=== PATIENT | female | born 1995 | race Caucasian/White ===

== ENCOUNTER 2016-07-15 11:23 | Inpatient (IN) | payer BC, MEDICAID ==
[~2016-07-15] VITALS: Ht 154.9 cm; Wt 92.3 kg
[~2016-07-15 11:23] MED LIST: MIDRIN PO; NO HOME MEDICATIONS; REGLAN 5MG T5 MG/TAB PO; birth control
[2016-08-08] VITALS (9 sets, daily range): BP systolic 135–167; BP diastolic 82–106; PULSE 100–130; TEMP 98–98.4
[2016-08-08 20:04] LABS: BASO % 0.2 % (0.0-2.0); EOS # 0.2 (0.0-0.7); EOS % 1.2 % (0-4.0); GRAN # 10.5 (1.4-6.5); GRAN % 77.1 % (42.2-75.2); HEMATOCRIT 30.4 % (37.0-47.0); HEMOGLOBIN 9.6 g/dl (12.5-16.0); LYMPH # 1.7 (1.2-3.4); LYMPH % 12.5 % (20.0-51.0); MEAN CELL VOLUME 76 fl (80.0-100.0); MEAN CORPUSCULAR HEMOGLOBIN 24 pg (27.0-31.0); MEAN CORPUSCULAR HGB CONC 32 g/dl (33.0-37.0); MEAN PLATELET VOLUME 12.4 fl (7.4-10.4); MONO % 7.5 % (1.7-9.3); PLATELET COUNT 222 K/mm3 (130-400); RED BLOOD COUNT 3.98 M/mm3 (4.10-5.30); REDCELL DISTRIBUTION WIDTH-CV 16.1 % (11.5-14.5); WHITE BLOOD COUNT 13.7 K/mm3 (4.8-10.8)
[2016-08-08 21:21] LABS: PH 7 (5-8); SQUAMOUS EPITHELIAL 0-2 /hpf; URINE APPEARANCE Clear; URINE BACTERIA None Seen /hpf; URINE BILIRUBIN Negative (NEGATIVE); URINE BLOOD Negative (NEGATIVE); URINE COLOR Yellow; URINE GLUCOSE Negative (NEGATIVE); URINE KETONE Negative (NEGATIVE); URINE RBC 0-2 /hpf; URINE UROBILINOGEN Negative (NEGATIVE); URINE WBC 0-2 /hpf
[2016-08-08 21:38] LABS: ADJUSTED CALCIUM 9.3 mg/dL (8.4-10.2); ALBUMIN 3.4 gm/dL (3.5-5.0); BILIRUBIN,TOTAL 0.5 mg/dL (0.0-1.0); CALCIUM 8.8 mg/dL (8.4-10.2); CREATININE, serum 0.66 mg/dL (0.52-1.25); POTASSIUM 3.5 mmol/L (3.4-5.0); TOTAL PROTEIN 6.2 gm/dL (6.4-8.2)
[2016-08-08] MEDS ORDERED: IRON325 MG PO (21:42)
[2016-08-09] VITALS (79 sets, daily range): BP systolic 103–159; BP diastolic 58–98; PULSE 90–115; TEMP 97.9–98.4
[2016-08-10] VITALS (50 sets, daily range): BP systolic 115–161; BP diastolic 19–100; PULSE 81–974; TEMP 98.1–99.8
[2016-08-10 11:01] LABS: MEAN CELL VOLUME 76 fl (80.0-100.0); MEAN CORPUSCULAR HGB CONC 33 g/dl (33.0-37.0); MEAN PLATELET VOLUME 12.7 fl (7.4-10.4); PLATELET COUNT 234 K/mm3 (130-400)
[2016-08-10 11:05] LABS: ADD PATHOLOGY DIFF REVIEW NO; HEMATOCRIT 26.7 % (37.0-47.0); HEMOGLOBIN 8.7 g/dl (12.5-16.0); MEAN CORPUSCULAR HEMOGLOBIN 25 pg (27.0-31.0); WHITE BLOOD COUNT 32.7 K/mm3 (4.8-10.8)
[2016-08-10 13:19] LABS: BAND 28 % (0-10); NEUTROPHILS 70 % (42.0-75.2); PLATELET ESTIMATE NORMAL (NORMAL); TOTAL CELLS COUNTED 100
[2016-08-11 00:15] VITALS: BP 131/89; PULSE 107; TEMP 97.8
[2016-08-11 04:45] VITALS: BP 112/72; PULSE 99; TEMP 97.7
[2016-08-11 07:00] VITALS: BP 129/77; PULSE 100; TEMP 98.3
[2016-08-11 08:14] LABS: BASO % 0.2 % (0.0-2.0); EOS # 0.2 (0.0-0.7); GRAN # 15.4 (1.4-6.5); GRAN % 82.4 % (42.2-75.2); LYMPH # 1.7 (1.2-3.4); MEAN CELL VOLUME 79 fl (80.0-100.0); MEAN CORPUSCULAR HGB CONC 31 g/dl (33.0-37.0); MEAN PLATELET VOLUME 12.4 fl (7.4-10.4); MONO # 1.2 (0.1-0.6); MONO % 6.6 % (1.7-9.3); PLATELET COUNT 185 K/mm3 (130-400); RED BLOOD COUNT 2.72 M/mm3 (4.10-5.30); REDCELL DISTRIBUTION WIDTH-CV 16.9 % (11.5-14.5); WHITE BLOOD COUNT 18.7 K/mm3 (4.8-10.8)
[2016-08-11 08:24] LABS: HEMATOCRIT 21.4 % (37.0-47.0); HEMOGLOBIN 6.7 g/dl (12.5-16.0); MEAN CORPUSCULAR HEMOGLOBIN 25 pg (27.0-31.0)
[2016-08-11 16:30] VITALS: BP 137/90; PULSE 112; TEMP 98.2
[2016-08-11 20:30] VITALS: BP 144/78; PULSE 120; TEMP 97.8
[2016-08-12 07:45] VITALS: BP 137/89; PULSE 102; TEMP 97.9
[2016-08-12] MEDS ORDERED: IBU800 M1 PO (09:01)
[2016-08-12] MEDS ORDERED: PERCOCET 325 MG1 TA2 PO (09:01)
[2016-08-12 11:08] LABS: MEAN CELL VOLUME 80 fl (80.0-100.0); MEAN CORPUSCULAR HGB CONC 31 g/dl (33.0-37.0); PLATELET COUNT 211 K/mm3 (130-400); REDCELL DISTRIBUTION WIDTH-CV 17.2 % (11.5-14.5); WHITE BLOOD COUNT 14.3 K/mm3 (4.8-10.8)
[2016-08-12 11:14] LABS: HEMOGLOBIN 6.1 g/dl (12.5-16.0); MEAN CORPUSCULAR HEMOGLOBIN 24 pg (27.0-31.0)
== END 2016-08-12 13:50 | disposition home or self-care (01) | DRG 765 ==
LOC: OB 08-07 09:47 → LDR 08-08 19:00 → OB 08-08 20:19 → LDR 08-10 04:05 → OB 08-10 10:15
PROVIDERS: Obstetrics & Gynecology
PROC: 10D00Z1 Extraction of Products of Conception, Low, Open Approach (ICD-10-PCS; principal; 2016-08-10)
PROC: 3E0P7GC Introduction of Other Therapeutic Substance into Female Reproductive, Via Natural or Artificial Opening (ICD-10-PCS; 2016-08-10)
DX: O48.0 Post-term pregnancy (principal); D62 Acute posthemorrhagic anemia; O99.02 Anemia complicating childbirth; O62.0 Primary inadequate contractions; O75.89 Other specified complications of labor and delivery; O13.3 Gestational [pregnancy-induced] hypertension without significant proteinuria, third trimester; O33.3XX0 Maternal care for disproportion due to outlet contraction of pelvis, not applicable or unspecified; O69.81X0 Labor and delivery complicated by cord around neck, without compression, not applicable or unspecified; Z3A.41 41 weeks gestation of pregnancy; Z37.0 Single live birth
CPT/HCPCS: J0690; J1885; J2370; J2400; J2405; J2590; J2795; J3010; J7120

== ENCOUNTER 2017-12-01 20:03 | Emergency (ER) | payer BC ==
[~2017-12-01] VITALS: Ht 154.9 cm; Wt 81.8 kg
[~2017-12-01 20:03] MED LIST changes: +IBU800 M1 PO; +IRON325 MG PO; +PERCOCET 325 MG1 TA2 PO
[2017-12-01 20:18] VITALS: BP 137/90; TEMP 98.4
[2017-12-01] MEDS ORDERED: ZOFRAN ODT4 MG PO (21:01)
[2017-12-01] MEDS ORDERED: CLEOCIN HCL300 MG PO (21:01)
[2017-12-01] MEDS ORDERED: NORCO 325 MG-7.1 TAB PO (21:01)
[2017-12-01 21:16] VITALS: PULSE 92
== END 2017-12-01 21:16 | disposition home or self-care (01) ==
LOC: COL.ER 20:03
DX: K02.9 Dental caries, unspecified (principal); K04.7 Periapical abscess without sinus